=== PATIENT | male | born 1955 | race American Indian/Alaskan Native ===

== ENCOUNTER 2019-05-05 05:48 | Day surgery (SDC) | payer OTHER ==
[2019-05-05] MEDS ORDERED: NACL 0.9% 1000 ML 1,000 ML IV SCH (07:00)
[2019-05-05] MEDS ORDERED: DIPRIVAN 10 MG/ML IV ONE ×3 (07:31→08:27)
[2019-05-05] MEDS ORDERED: WATER FOR IRRIG STERILE IR ONE (07:32)
[2019-05-05] MEDS ORDERED: WATER FOR IRRIG STERILE ONE (07:32)
--- NOTE | 2019-05-05 07:43 | Anesthesia Consultation ---
Anesthesia Consult and Med Hx Date of service: 05/05/19 - Airway Anesthetic Teeth Evaluation: Good ROM Head & Neck: Adequate Mental/Hyoid Distance: Adequate Mallampati Class: Class II Intubation Access Assessment: Probably Good - Pulmonary Exam CTA: Yes - Cardiac Exam Cardiac Exam: RRR - Pre-Operative Health Status ASA Pre-Surgery Classification: ASA3 Proposed Anesthetic Plan: MAC - Pulmonary Hx Sleep Apnea: Yes - Cardiovascular System Hx Hypertension: Yes
[2019-05-05 10:51] VITALS: BP 143/80
[2019-05-05] MEDS ORDERED: XYLOCAINE MPF 2% ONE (13:00)
== END 2019-05-05 05:49 | disposition home or self-care (01) ==
LOC: GIO 05:48
PROVIDERS: ATTEND Internal Medicine Gastroenterology
DX: Z12.11 Encounter for screening for malignant neoplasm of colon (principal); D12.4 Benign neoplasm of descending colon; K62.1 Rectal polyp; K64.8 Other hemorrhoids; E78.00 Pure hypercholesterolemia, unspecified; I10 Essential (primary) hypertension; G47.30 Sleep apnea, unspecified; Z87.891 Personal history of nicotine dependence; Z79.899 Other long term (current) drug therapy; Z90.49 Acquired absence of other specified parts of digestive tract; Z87.442 Personal history of urinary calculi; Z98.890 Other specified postprocedural states; Z86.718 Personal history of other venous thrombosis and embolism
CPT/HCPCS: 88305; J2704; J7030